=== PATIENT | female | born 1945 | race Caucasian/White ===

== ENCOUNTER 2019-04-21 13:24 | Outpatient (CLI) | payer OTHER, SELFPAY ==
--- NOTE | ~2019-04-21 | CT_ITS ---
EXAMINATION: CT abdomen pelvis wo con EXAM DATE: 04/21/2019 14:01 INDICATION: Bilateral flank pain. Possible anterior abdominal pain. TECHNIQUE: Spiral CT of the abdomen and pelvis was performed without contrast. Axial, coronal and sag ittal images were reviewed. The dose-length product (DLP) for this examination was 538.96 mGy-cm. T he exposure was tailored according to patient size (auto mA exposure control), and iterative reconstr uction (ASIR) was used as additional dose reduction technique. Comparison is made to prior examinatio n from 03/17/2019. FINDINGS: Right calyceal stone measuring 1.1 cm. No hydronephrosis. The uterus is retroverted and mo rphologically normal. The bladder is unremarkable. Left liver lobe lateral segment cyst measuring 5.7 cm. There is probable splenosis. Adrenal glands, pancreas are unremarkable. Gallbladder is unrem arkable. No biliary obstruction. There is no retroperitoneal or pelvic lymphadenopathy. There is moderate scattered arteriosclerotic disease. The appendix is normal. The stomach and small bowel are unremarkable. There is moderate to large am ount of stool within the transverse colon which is tortuous and low lying. No free intraperitoneal gas. The heart is normal in size. There are no pericardial or pleural effusions. There are bibasi lar linear opacities, subsegmental atelectasis. There are multiple thoracolumbar compression fractures. Bones are osteopenic. More specifically, ther e is moderate to severe anterior wedging of the T10 vertebral body, mild at T11, mild to moderate at T12, L1 and L2. Mild to moderate central compression of L3 and moderate to severe central compression of L4. The T11 fracture is new compared to last month CT. Also one or more could potentially involve the posterior aspect of the vertebral body, but there is no retropulsion. There are old left rib fra ctures posteriorly. No evidence of sacral insufficiency fracture. There are no osteoblastic or osteol ytic lesions identified. IMPRESSION: 1. Moderate to large amount of transverse colonic stool. 2. Right nephrolithiasis. 3. Splenosis. Other chronic findings. 4. Interval development of subacute T11 compression fracture. Multiple other thoracolumbar compressi on fractures unchanged.. Reviewed, dictated and finalized at location A. E THINNER IMPRESSION: 1. Moderate to large amount of transverse colonic stool. 2. Right nephrolithiasis. 3. Splenosis. Other chronic findings. 4. Interval development of subacute T11 compression fracture. Multiple other t horacolumbar compression fractures unchanged..
== END 2019-04-21 13:25 | disposition home or self-care (01) ==
LOC: ANHIMG 13:30
PROVIDERS: PCP Family Medicine; Visit Provider Nurse Practitioner
DX: R10.9 Unspecified abdominal pain (principal); N20.0 Calculus of kidney
CPT/HCPCS: 74176

== ENCOUNTER 2019-04-21 15:02 | Emergency (ER) | payer OTHER, SELFPAY ==
[2019-04-21 15:11] VITALS: BP 179/111; PULSE 81; RESP 18; TEMP 36.8; O2SAT 100
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
[2019-04-21 15:43] LABS: Basophils Percent Auto 0.4 % (0.2-1.2); Eosinophils Absolute Auto 0.3 K/mm3 (0-0.3); Eosinophils Percent Auto 2.6 % (0-4.4); Hematocrit 45.5 % (37.0-47.0); Hemoglobin 14.9 g/dL (12.0-15.0); Immature Granulocyte Absolute 0.04 K/mm3 (0.00-0.031); Immature Granulocyte Percent A 0.4 % (0-0.5); Lymphocytes Absolute Auto 2.89 K/mm3 (0.9-3.2); Mean Corpuscular HGB Conc 32.7 g/dl (32-36); Mean Corpuscular Hemoglobin 30.5 pg (26-34); Mean Corpuscular Volume 93.2 fl (80-100); Mean Platelet Volume 12.1 fl (7.4-10.4); Monocytes Absolute Auto 1.1 K/mm3 (0.1-0.6); Monocytes Percent Auto 10.4 % (2.6-8.5); Neutrophils Absolute Auto 6.4 K/mm3 (1.3-6.7); Neutrophils Percent Auto 59.2 % (45.5-73.1); Platelet Count Result 234 k/mm3 (150-375); Red Blood Count 4.88 M/mm3 (4.2-5.4); Red Cell Distribution Width 12.7 % (11.5-14.5); White Blood Count 10.7 K/mm3 (4.5-10.0)
[2019-04-21] MEDS: DIAZEPAM 5 MG TABLET (15:44)
[2019-04-21] MEDS: MORPHINE SULFATE 4 MG/ML INJ (15:45)
[2019-04-21] MEDS: SODIUM CHLORIDE 0.9% IV 1,000 ML 999 ML IV CONT (15:46)
[2019-04-21 15:54] LABS: Alanine Aminotransferase 14 U/L (4-35); Albumin Level 5.1 g/dL (3.5-5.1); Alkaline Phosphatase 102 U/L (38-126); Aspartate Amino Transferase 22 U/L (14-36); Bilirubin,Total 0.8 mg/dL (0.2-1.3); Blood Urea Nitrogen 14 mg/dL (7-17); Calcium 10.5 mg/dL (8.4-10.2); Carbon Dioxide 23 mmol/L (22-30); Chloride 103 mmol/L (98-107); Estimated CRCL calculation 65 ml/min; Estimated Glomerular Filt Rate > 60; Glucose 120 mg/dL (65-105); Lipase 76 U/L (23-300); Potassium 4.2 mmol/L (3.4-5.0); Sodium 142 mmol/L (137-145)
[2019-04-21 16:28] VITALS: BP 174/109; PULSE 76; RESP 18; O2SAT 97
[2019-04-21 17:06] LABS: Add Urine Microscopic? YES; Appearance Urine Clear (Clear); Bacteria Urine Trace /hpf; Bilirubin Urine Negative (Negative); Blood Urine 2+ (Negative); Color Urine Yellow (Yellow); Glucose Urine UA Negative (Negative); Ketones Urine Trace mg/dL (Negative); Leukocyte Esterase Ur 3+ LEU/UL (Negative); Mucus Urine Heavy /lpf; Nitrate Urine Negative (Negative); Protein Urine Negative (Negative); Specific Grav Ur 1.019 (1.001-1.035); Squamous Epithelial Cell Urine Few /hpf (Few); WBC Urine 51-75 /hpf
[2019-04-21 17:31] VITALS: BP 163/94; PULSE 73; RESP 13; O2SAT 97
--- NOTE | 2019-04-26 09:04 | PC.NURSE ---
LATE ENTRY This note is being entered to document information to the patient's record. The following information was omitted on 04/21/2019, by Jazzy Gooden RN. 1,000 MLS NS infused at stop time of 1618 w/ 0 volume left.
== END 2019-04-21 17:49 | disposition home or self-care (01) ==
PROVIDERS: Emergency Provider Emergency Medicine; PCP Family Medicine
DX: N39.0 Urinary tract infection, site not specified (principal); S22.080A Wedge compression fracture of T11-T12 vertebra, initial encounter for closed fracture; M19.90 Unspecified osteoarthritis, unspecified site; I10 Essential (primary) hypertension; K73.2 Chronic active hepatitis, not elsewhere classified; E78.2 Mixed hyperlipidemia; Z86.73 Personal history of transient ischemic attack (TIA), and cerebral infarction without residual deficits; Z87.442 Personal history of urinary calculi; M51.35 Other intervertebral disc degeneration, thoracolumbar region; X58.XXXA Exposure to other specified factors, initial encounter
CPT/HCPCS: 36415; 80053; 81001; 83690; 85025; 87086; 96361; 96374; 99284; A9270; J2270; J7030

== ENCOUNTER 2019-04-29 23:22 | Emergency (ER) | payer OTHER, SELFPAY ==
--- NOTE | ~2019-04-29 | CT_ITS ---
EXAMINATION: CT abdomen pelvis wo con DATE: 04/30/2019 00:12 INDICATION: Right flank pain. Nausea and vomiting. TECHNIQUE: Computed tomography (CT) of the abdomen and pelvis was performed without intravenous contr ast. Automated exposure control and iterative reconstruction technique were employed. The dose-length product was 479.57 mGy-cm. COMPARISON: CT abdomen and pelvis 04/21/2019, 03/17/19 FINDINGS: The visualized portions of the lung bases demonstrate mild atelectasis. No pleural effusion . The heart size is normal. There are changes of aortic valve replacement. No pericardial effusion. T here is a 5.5 cm cyst in the liver. The gallbladder is normal. There are surgical clips and splenosis in left upper quadrant. The pancreas, adrenal glands, and left kidney are normal. There is a [address] one in right kidney. There are no dilated loops of bowel. The appendix is normal. There are no pathol ogically enlarged lymph nodes. There is no free intraperitoneal fluid. There is lumbar levoscoliosis and severe spondylosis. There is a subacute burst fracture of L1 with 2/5 loss of height and retropul margarette of bone 2 mm into central spinal canal. There is a subacute burst fracture of T11 with 1/5 loss of height. There are chronic fractures of T9, T10, T12, L2, L3, L4, and L5 vertebral bodies. IMPRESSION: 1. 9 mm nonobstructing right kidney stone. Reviewed, dictated and finalized at location A. LAYER SUPERVISOR
[2019-04-29 23:25] VITALS: BP 168/96; PULSE 66; RESP 22; TEMP 36.6; O2SAT 97
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
[2019-04-30 00:02] LABS: Add Urine Microscopic? NO; Appearance Urine Clear (Clear); Bilirubin Urine Negative (Negative); Blood Urine Negative (Negative); Color Urine Straw (Yellow); Glucose Urine UA Negative (Negative); Ketones Urine Negative (Negative); Leukocyte Esterase Ur Negative LEU/UL (Negative); Nitrate Urine Negative (Negative); Protein Urine Negative (Negative); Specific Grav Ur 1.011 (1.001-1.035); Urobilinogen Urine Negative mg/dL (<2.0)
[2019-04-30] MEDS: KETOROLAC 30 MG/ML VIAL (*BKC) IV PUSH (00:10)
[2019-04-30 01:20] LABS: Alanine Aminotransferase 11 U/L (4-35); Albumin Level 3.9 g/dL (3.5-5.1); Alkaline Phosphatase 104 U/L (38-126); Aspartate Amino Transferase 20 U/L (14-36); Bilirubin,Total 0.4 mg/dL (0.2-1.3); Blood Urea Nitrogen 13 mg/dL (7-17); Calcium 9.6 mg/dL (8.4-10.2); Carbon Dioxide 20 mmol/L (22-30); Chloride 104 mmol/L (98-107); Estimated CRCL calculation 78 ml/min; Estimated Glomerular Filt Rate > 60; Glucose 106 mg/dL (65-105); Potassium 3.6 mmol/L (3.4-5.0); Sodium 140 mmol/L (137-145)
[2019-04-30 01:22] LABS: Basophils Absolute Auto 0.1 K/mm3 (0.0-0.1); Basophils Percent Auto 0.6 % (0.2-1.2); Eosinophils Absolute Auto 0.4 K/mm3 (0-0.3); Eosinophils Percent Auto 3.3 % (0-4.4); Hematocrit 41.4 % (37.0-47.0); Hemoglobin 13.4 g/dL (12.0-15.0); Immature Granulocyte Absolute 0.07 K/mm3 (0.00-0.031); Immature Granulocyte Percent A 0.6 % (0-0.5); Lymphocytes Absolute Auto 2.59 K/mm3 (0.9-3.2); Lymphocytes Percent Auto 23.9 % (18.3-44.2); Mean Corpuscular HGB Conc 32.4 g/dl (32-36); Mean Corpuscular Hemoglobin 30.5 pg (26-34); Mean Corpuscular Volume 94.1 fl (80-100); Mean Platelet Volume 11.8 fl (7.4-10.4); Monocytes Percent Auto 9.5 % (2.6-8.5); Neutrophils Absolute Auto 6.7 K/mm3 (1.3-6.7); Neutrophils Percent Auto 62.1 % (45.5-73.1); Platelet Count Result 228 k/mm3 (150-375); Red Cell Distribution Width 12.7 % (11.5-14.5); White Blood Count 10.8 K/mm3 (4.5-10.0)
[2019-04-30 01:30] VITALS: BP 144/86; PULSE 62; RESP 19; O2SAT 94
== END 2019-04-30 02:00 | disposition home or self-care (01) ==
PROVIDERS: Emergency Provider Emergency Medicine; PCP Family Medicine
DX: M48.54XG Collapsed vertebra, not elsewhere classified, thoracic region, subsequent encounter for fracture with delayed healing (principal); M48.56XG Collapsed vertebra, not elsewhere classified, lumbar region, subsequent encounter for fracture with delayed healing; S32.011A Stable burst fracture of first lumbar vertebra, initial encounter for closed fracture; M85.88 Other specified disorders of bone density and structure, other site; N20.0 Calculus of kidney; M19.90 Unspecified osteoarthritis, unspecified site; I10 Essential (primary) hypertension; E78.2 Mixed hyperlipidemia; Z86.73 Personal history of transient ischemic attack (TIA), and cerebral infarction without residual deficits; G57.01 Lesion of sciatic nerve, right lower limb; Z79.82 Long term (current) use of aspirin; Z90.81 Acquired absence of spleen; Z95.2 Presence of prosthetic heart valve; I25.10 Atherosclerotic heart disease of native coronary artery without angina pectoris; Z95.1 Presence of aortocoronary bypass graft; X58.XXXA Exposure to other specified factors, initial encounter
CPT/HCPCS: 36415; 74176; 80053; 81003; 85025; 96365; 96375; 99284; J0131; J1885

== ENCOUNTER → 2019-09-14 11:11 | Outpatient (CLI) | payer OTHER, SELFPAY ==
--- NOTE | ~2019-09-14 | DEXA_ITS ---
Bone Density Report Name: Naomi Askew Age: 74 Sex: Female Ethnicity: White Date of : 1945 Indication: postmenopausal; screening for osteoporosis; height loss; prior fracture; Referring Provider: Luba Pena Study: Bone densitometry was performed. Exam Date: September 14, 2019 Accession number: [id number] Bone Density: Region BMD T-score Z-score Classification AP Spine (L1-L4) 1.088 0.4 2.6 Normal Femoral Neck (Left) 0.581 -2.4 -0.5 Osteopenia Total Hip (Left) 0.785 -1.3 0.4 Osteopenia Femoral Neck (Right) 0.543 -2.8 -0.8 Osteoporosis Total Hip (Right) 0.743 -1.6 0.0 Osteopenia Total Hip Mean 0.764 -1.5 0.2 Osteopenia World Health Organization criteria for BMD impression classify patients as: Normal (T-score at or above -1.0), Osteopenia (T-score between -1.0 and -2.5), or Osteoporosis (T-score at or below -2.5). 10-year Fracture Risk: FRAX not reported because: Some T-score for Spine Total or Hip Total or Femoral Neck at or below -2.5 Prior hip or vertebral fracture Clinical Information Provided by Patient: Have had a previous hip or vertebral fracture Has had a low trauma fracture Has used the following medications: Vitamin D Patient maximum height was 69 Menopause Age: 52 No regular weight bearing exercise Onset of menses at age 18 Number of children 2 Impression: The patient has established osteoporosis, based on the Right Femoral Neck T-score and the existence of a prior fracture. The patient has risk factors, including: previous fracture. Discussion: HIGH RISK OF FRACTURE. BONE DENSITY IS UNDESIRABLY LOW AT ONE OR MORE SKELETAL SITES, CONSISTENT WITH POSTMENOPAUSAL OSTEOPOROSIS. This patient's lowest T-score, in a patient who has previously fractured, meets the World Health Organization's (WHO) criteria for severe osteoporosis. In untreated patients, the risk of osteoporotic fracture increases approximately two-fold for each 1.0 SD decrease in T-score. Low bone density is not the only risk factor for fracture; also consider factors such as patient's age, frailty or poor health, risk of falling, risk of injury, previous osteoporotic fracture, family history of osteoporosis, cigarette smoking, low body weight, etc. Not everyone with low bone mineral density has osteoporosis; osteomalacia and other metabolic bone disorders should also be considered. Patients who have osteoporosis should be evaluated for specific diseases and conditions (secondary causes) that may cause or contribute to bone loss. The [place] Association [employer] Clinical Endocrinologists (AACE) and National Osteoporosis Foundation (NOF) recommend pharmacologic intervention for all postmenopausal women with a previous hip or vertebral fracture and a T-score in this range. The patient should follow a healthful lifestyle (good nutrition
== END ==
PROVIDERS: PCP Family Medicine; Visit Provider Nurse Practitioner
DX: Z78.0 Asymptomatic menopausal state (principal); M85.89 Other specified disorders of bone density and structure, multiple sites; M81.0 Age-related osteoporosis without current pathological fracture
CPT/HCPCS: 77080

== ENCOUNTER 2019-10-04 08:36 | Outpatient (CLI) | payer OTHER, SELFPAY ==
--- NOTE | ~2019-10-04 | CT_ITS ---
EXAMINATION: CT chest w con EXAM DATE: 10/04/2019 09:33 INDICATION: Status post aortic valve replacement, ascending aortic aneurysm follow-up. TECHNIQUE: Spiral CT of the chest following intravenous injection of 75 mL Omnipaque 350. Axial, cor onal and sagittal images were reviewed. Coronal maximum intensity pixel images of chest reviewed. T marichuy dose-length product (DLP) for this examination was 123.48 mGy-cm. The exposure was tailored accor ding to patient size (auto mA exposure control), and iterative reconstruction (ASIR) was used as audie tional dose reduction technique. Comparison is made to prior examination from 10/02/2018. FINDINGS: Patient has had aortic valve replacement, ascending aortic aneurysm repair. No thoracic ao rtic dissection. There is mild to moderate scattered aortic arteriosclerotic disease. Sternotomy wire s. There is noncalcified left lower lobe granuloma measuring 5 mm, unchanged. There is mild emphysema . There are no pleural or pericardial effusions. Tracheobronchial tree is patent. There is no med iastinal, hilar or axillary lymphadenopathy. There is no pneumothorax. Heart normal in size. Th ere is mild coronary arterial calcification, arterial sclerosis. There is left liver lobe cyst measu ring 5.7 cm. Previously seen T12 and L1 compression fractures have been treated with vertebroplasty. There is persistent moderate compression fracture at T10. Interval development of mild compression f racture inferior endplate of T8. IMPRESSION: 1. Stable aortic valve replacement, aneurysm repair. 2. Thoracolumbar compression fractures. 3. Mild emphysema. Reviewed, dictated and finalized at location A.
[2019-10-04 09:22] LABS: Estimated Glomerular Filt Rate > 60
== END 2019-10-04 08:37 | disposition home or self-care (01) ==
PROVIDERS: PCP Family Medicine; Referring Provider Internal Medicine Cardiovascular Disease; Visit Provider Thoracic Surgery (Cardiothoracic Vascular Surgery)
DX: I71.00 Dissection of unspecified site of aorta (principal); J43.9 Emphysema, unspecified; Z95.2 Presence of prosthetic heart valve
CPT/HCPCS: 36415; 71260; Q9967

== ENCOUNTER 2020-11-03 10:26 | Outpatient (CLI) | payer OTHER, SELFPAY ==
--- NOTE | ~2020-11-03 | XR_ITS ---
XR abdomen/kub 1V 11/03/2020 10:56 Indication: Renal stone Procedure: KUB Comparison: No prior studies for comparison. Findings: Bowel gas pattern is nonobstructive. Moderate colonic fecal loading. There is probable righ t renal stone which is partially obscured by bowel content. There are pelvic phleboliths. There is ad vanced lumbar spondylosis. There are vertebroplasty changes at T12 and L1. Impression: 1: Probable right nephrolithiasis. Reviewed, dictated and finalized at location A. Impression: 1: Probable right nephrolithiasis.
== END 2020-11-03 10:27 | disposition home or self-care (01) ==
LOC: ANHIMG 10:30
PROVIDERS: PCP Family Medicine; Visit Provider Nurse Practitioner Adult Health
DX: N20.0 Calculus of kidney (principal)
CPT/HCPCS: 74018

== ENCOUNTER 2020-11-07 11:26 | Outpatient (CLI) | payer OTHER, SELFPAY ==
--- NOTE | 2020-11-07 11:30 | ECG_ITS ---
Measurements Intervals [place] Rate: 60 P: 15 LA: 190 QRS: -14 QRSD: 86 T: 44 QT: 408 QTc: 411 Interpretive Statements SINUS RHYTHM WITH MARKED SINUS ARRHYTHMIA POSSIBLE LEFT ATRIAL ENLARGEMENT INFERIOR INFARCT, AGE INDETERMINATE BASELINE ARTIFACT- I, II, III, AVL, V4 ABNORMAL ECG Electronically Signed On 11-07-2020 11:53:59 CDT by Aleksandr Cho D.O.
[2020-11-07 12:14] LABS: Partial Thromboplastin Time 27.5 SECONDS (22.3-36.8); Prothrombin Time 12.7 Seconds (11.1-14.7)
== END 2020-11-07 11:27 | disposition home or self-care (01) ==
PROVIDERS: PCP Family Medicine; Visit Provider Urology
DX: Z01.818 Encounter for other preprocedural examination (principal); N20.0 Calculus of kidney; I10 Essential (primary) hypertension; R94.31 Abnormal electrocardiogram [ECG] [EKG]
CPT/HCPCS: 36415; 85610; 85730; 87086; 87088; 93005

== ENCOUNTER 2020-11-10 02:00 | Day surgery (SDC) | payer OTHER, SELFPAY ==
[2020-11-06 12:39] VITALS: BMI 23.0
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
[2020-11-10] VITALS (9 sets, daily range): BP systolic 121–179; BP diastolic 66–92; PULSE 53–77; RESP 15–20; TEMP 36–36.3; O2SAT 95–100
--- NOTE | ~2020-11-10 | XR_ITS ---
EXAMINATION: XR abdomen/kub 1V EXAM DATE: 11/10/2020 07:42 INDICATION: Right-sided kidney stone, pre lithotripsy. TECHNIQUE: Frontal projection of the upper abdomen, frontal projection lower abdomen/pelvis for inter pretation. Comparison is made to prior examination from 11/03/20. FINDINGS: There is 1 cm calcific density rejecting over right kidney, likely the stone identified on CT. Renal contour is obscured by bowel gas. Nonobstructive bowel gas pattern. Aortic valve replaceme nt, sternotomy wires, vertebroplasty at T12 and L1, lumbar spondylosis. IMPRESSION: 1. Large right nephrolithiasis. Reviewed, dictated and finalized at location A.
--- NOTE | 2020-11-10 06:32 | WPDHPUPDATE1 ---
History and Physical Update Update Date/Time: 11/10/20 06:32 History and Physical has been reviewed, including an updated exam of the patient. There are NO changes in the patient's condition. Risks, benefits, and alternatives have been discussed and questions answered. Patient agrees to proceed with procedure.
[2020-11-10] MEDS: LACTATED RINGERS 1,000 ML 30 ML IV CONT (08:30)
[2020-11-10] MEDS: ceFAZolin 2 GM/D5W 50 ML 2 GM/50 ML BAG IVPB (09:19)
--- NOTE | 2020-11-10 09:44 | W.PM.PROC2 ---
Procedure Note - Detailed Date of Procedure 11/10/20 Pre-op Diagnosis Right kidney stone Post-op Diagnosis same Procedure Performed Right ESWL Surgeon Chavez Shields MD Anesthesia general Description of Procedure The patient was brought to the operative suite where she was placed in the supine position on the Dornier lithotripsy table. The focal point of the lithotripter was placed at an 11mm right renal calculus. A total of 2500 shocks were delivered at a power setting of 4. There appeared to be good fragmentation of the stone. The patient tolerated the procedure well and was taken to the recovery room in good condition. Estimated Blood Loss 0 Drains No Packing No Pathology none sent Complications No immediate complications Condition stable Disposition PACU
--- NOTE | 2020-11-10 10:42 | SUR.PHASEI ---
Simple mask removed at 1041.
--- NOTE | 2020-11-10 12:03 | SUR.PHASEII ---
1145 PT MEETS ANESTHESIA DISCHARGE CRITERIA. PT DRESSED. WAITING ON RIDE HOME.
== END 2020-11-10 12:04 | disposition home or self-care (01) ==
PROVIDERS: PCP Family Medicine; Visit Provider Urology
PROC: (CPT 50590; principal; 2020-11-10 09:30)
DX: N20.0 Calculus of kidney (principal); M19.90 Unspecified osteoarthritis, unspecified site; I10 Essential (primary) hypertension; E78.2 Mixed hyperlipidemia; Z86.73 Personal history of transient ischemic attack (TIA), and cerebral infarction without residual deficits; F32.9 Major depressive disorder, single episode, unspecified; Z79.82 Long term (current) use of aspirin
CPT/HCPCS: 50590; 36415; 74018; 85610; 85730; 87086; 87088; 93005; J0690; J1100; J2405; J2704; J7120

== ENCOUNTER 2020-11-24 13:59 | Outpatient (CLI) | payer OTHER, SELFPAY ==
--- NOTE | ~2020-11-24 | XR_ITS ---
EXAMINATION: XR abdomen/kub 1V INDICATION: Right-sided kidney stone TECHNIQUE: Supine views of the abdomen were obtained on 2 radiographs. COMPARISON: 11/10/2020 FINDINGS: Bowel contents project over the kidneys limiting sensitivity for renal stones. The previous ly described stone in the right kidney is not definitely identified, consistent with interval therapy . No definite stones or stone fragments are identified along the expected course of the right ureter. There are phleboliths described moderate stool vertebroplasty change is noted at T12 and L1. IMPRESSION: 1. No definite urolithiasis identified. Reviewed, dictated and finalized at location B.
== END 2020-11-24 14:00 | disposition home or self-care (01) ==
LOC: ANHIMG 14:01
PROVIDERS: PCP Family Medicine; Visit Provider Urology
DX: N20.0 Calculus of kidney (principal)
CPT/HCPCS: 74018

== ENCOUNTER 2020-12-15 03:39 | Emergency (ER) | payer OTHER, SELFPAY ==
--- NOTE | ~2020-12-15 | CT_ITS ---
EXAMINATION: CT abdomen pelvis wo con EXAM DATE: 12/15/2020 05:01 INDICATION: R flank pain eval for stone TECHNIQUE: Spiral CT of the abdomen and pelvis was performed without contrast. Axial, coronal and sag ittal images were reviewed. The dose-length product (DLP) for this examination was 167.89 mGy-cm. T he exposure was tailored according to patient size (auto mA exposure control), and iterative reconstr uction (ASIR) was used as additional dose reduction technique. Comparison is made to prior examinatio n from 04/30/2019. FINDINGS: There are several stones in the distal aspect of the right ureter, 1 cm from the ureteroves icular junction. This line of stones measures 1.7 cm in length, difficult to determine exactly how la rge any given stone is. There is moderate right-sided obstructive nephropathy. Additional stone in th e inferior calyx of this kidney measuring 1 cm. No left nephrolithiasis. Small umbilical fat-containing hernia. The uterus is unremarkable. The bl adder is unremarkable. There is left liver lobe cyst measuring 5.7 cm. Liver, pancreas and adrenal g lands are unremarkable. Patient may have had splenectomy and subsequent development of splenosis. Ga llbladder is unremarkable. No biliary obstruction. There is no retroperitoneal or pelvic lymphadeno nikki. There is moderate scattered arteriosclerotic disease. The appendix is normal. The stomach and small bowel are unremarkable. There is expected amount of c olonic stool. No free intraperitoneal gas. Cardiomegaly. Aortic valve replacement. Sternotomy wir es. There are bibasilar linear opacities, subsegmental atelectasis. Chronic appearing thoracolumbar compression and burst fractures including T12 and L1 methylmethacrylate injection. These appear unch anged. IMPRESSION: 1. Line of stones in the distal aspect of the right ureter. Moderate obstructive nephropathy. Urolog ist would appreciate baseline KUB. 2. Right nephrolithiasis. 3. Chronic findings. Reviewed, dictated and finalized at location A. IMPRESSION: 1. Line of stones in the distal aspect of the right ureter. Moderate obstructi ve nephropathy. Urologist would appreciate baseline KUB. 2. Right nephrolithiasis. 3. Chronic findings.
[2020-12-15 03:40] VITALS: BP 159/99; PULSE 60; RESP 21; TEMP 36.5; O2SAT 95
[2020-12-15] MEDS: MORPHINE SULFATE (*CRX) 4 MG/ML INJ IV PUSH ×2 (04:04→05:21)
[2020-12-15] MEDS: ONDANSETRON INJ 4 MG/2 ML VIAL IV PUSH (04:04)
[2020-12-15] MEDS: SODIUM CHLORIDE 0.9% IV 1,000 ML 999 ML (04:05)
[2020-12-15 04:08] LABS: Basophils Absolute Auto 0.1 K/mm3 (0.0-0.1); Basophils Percent Auto 0.4 % (0.2-1.2); Eosinophils Absolute Auto 0.1 K/mm3 (0-0.3); Eosinophils Percent Auto 0.8 % (0-4.4); Hematocrit 40.2 % (37.0-47.0); Hemoglobin 13.3 g/dL (12.0-15.0); Immature Granulocyte Absolute 0.03 K/mm3 (0.00-0.031); Immature Granulocyte Percent A 0.3 % (0-0.5); Lymphocytes Percent Auto 18.6 % (18.3-44.2); Mean Corpuscular HGB Conc 33.1 g/dl (32-36); Mean Corpuscular Volume 96.9 fl (80-100); Mean Platelet Volume 11.9 fl (7.4-10.4); Monocytes Absolute Auto 0.9 K/mm3 (0.1-0.6); Monocytes Percent Auto 8.1 % (2.6-8.5); Neutrophils Absolute Auto 8.1 K/mm3 (1.3-6.7); Neutrophils Percent Auto 71.8 % (45.5-73.1); Platelet Count Result 195 k/mm3 (150-375); Red Blood Count 4.15 M/mm3 (4.2-5.4); White Blood Count 11.3 K/mm3 (4.5-10.0)
[2020-12-15 04:10] LABS: Alanine Aminotransferase 13 U/L (4-35); Albumin Level 4.9 g/dL (3.5-5.1); Alkaline Phosphatase 75 U/L (38-126); Anion Gap 11 mmol/L (8-16); Aspartate Amino Transferase 23 U/L (14-36); Bilirubin,Total 0.5 mg/dL (0.2-1.3); Blood Urea Nitrogen 18 mg/dL (7-17); Calcium 9.5 mg/dL (8.4-10.2); Carbon Dioxide 23 mmol/L (22-30); Chloride 108 mmol/L (98-107); Estimated CRCL calculation 51 ml/min; Estimated Glomerular Filt Rate > 60; Glucose 145 mg/dL (65-110); Lipase 35 U/L (23-300); Potassium 3.8 mmol/L (3.4-5.0); Sodium 142 mmol/L (137-145)
[2020-12-15 04:26] LABS: Add Urine Microscopic? YES; Appearance Urine Cloudy (Clear); Bilirubin Urine Negative (Negative); Blood Urine 3+ (Negative); Color Urine Colorless (Yellow); Glucose Urine UA Negative (Negative); Ketones Urine Negative (Negative); Leukocyte Esterase Ur Negative LEU/UL (Negative); Nitrate Urine Negative (Negative); Protein Urine 1+ mg/dL (Negative); RBC Urine >75 /hpf (0-2); Specific Grav Ur 1.016 (1.001-1.035); Urobilinogen Urine Negative mg/dL (<2.0)
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
[2020-12-15 05:22] VITALS: BP 161/88; PULSE 58; RESP 15; O2SAT 94
[2020-12-15 06:45] VITALS: BP 156/82; PULSE 57; RESP 17; O2SAT 95
== END 2020-12-15 07:12 | disposition home or self-care (01) ==
PROVIDERS: Emergency Provider Emergency Medicine; PCP Family Medicine
DX: N13.8 Other obstructive and reflux uropathy (principal); N20.2 Calculus of kidney with calculus of ureter; I10 Essential (primary) hypertension; Z86.73 Personal history of transient ischemic attack (TIA), and cerebral infarction without residual deficits; M19.90 Unspecified osteoarthritis, unspecified site; E78.2 Mixed hyperlipidemia; Z87.442 Personal history of urinary calculi; Z86.19 Personal history of other infectious and parasitic diseases; Z90.81 Acquired absence of spleen; Z95.2 Presence of prosthetic heart valve; R31.9 Hematuria, unspecified
CPT/HCPCS: 36415; 74176; 80053; 81001; 83690; 85025; 87086; 96361; 96374; 96375; 96376; 99284; J2270; J2405; J7030

== ENCOUNTER 2021-06-01 13:34 | Outpatient (CLI) | payer MEDICARE, SELFPAY ==
--- NOTE | ~2021-06-01 | XR_ITS ---
XR abdomen/kub 1V 06/01/2021 13:56 INDICATION: Renal stones TECHNIQUE: KUB COMPARISON: Comparison to multiple prior studies sequentially, with oldest reviewed study dated 11/03. FINDINGS: Bowel gas pattern is normal. There is no evidence of free air, mass, organomegaly, ascites or obstruction. Large amount of retained fecal material in the colon. Bowel content obscures the kid neys. No abnormal calculi are seen. The bones appear intact. There are compression fractures at T12 and L1 with vertebroplasty changes. There is advanced lumbar spondylosis with levoscoliosis. IMPRESSION: 1: No acute abdominal abnormality identified. Reviewed, dictated and finalized at location B.
== END 2021-06-01 13:35 | disposition home or self-care (01) ==
PROVIDERS: PCP Family Medicine; Visit Provider Urology
DX: N20.0 Calculus of kidney (principal)
CPT/HCPCS: 74018

== ENCOUNTER 2022-09-26 13:36 | Emergency (ER) | payer MEDICARE, SELFPAY ==
--- NOTE | ~2022-09-26 | XR_ITS ---
EXAMINATION: XR wrist RT min 3V DATE: 09/26/2022 14:04 INDICATION: Right wrist pain. TECHNIQUE: 4 views of right wrist were obtained. COMPARISON: Right wrist radiographs 08/11/2014 FINDINGS: Bone alignment is normal. No fracture. There is mild osteoarthritis of distal radioulnar yaa int and severe osteoarthritis of first carpometacarpal joint. There are dystrophic calcifications in the wrist. There are loose bodies in the wrist. IMPRESSION: 1. Polyarticular osteoarthritis. Reviewed, dictated and finalized at location E.
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
[2022-09-26 13:46] VITALS: BP 124/83; PULSE 107; RESP 16; TEMP 36.8; O2SAT 97
[2022-09-26 13:50] VITALS: BP 124/83; PULSE 107; RESP 16; TEMP 36.8; O2SAT 97
== END 2022-09-26 14:40 | disposition home or self-care (01) ==
PROVIDERS: Emergency Provider Nurse Practitioner Family; PCP Family Medicine
DX: M19.031 Primary osteoarthritis, right wrist (principal); I10 Essential (primary) hypertension; E78.2 Mixed hyperlipidemia; Z86.73 Personal history of transient ischemic attack (TIA), and cerebral infarction without residual deficits; Z86.61 Personal history of infections of the central nervous system; Z95.2 Presence of prosthetic heart valve
CPT/HCPCS: 73110; 99213; G0463

== ENCOUNTER 2022-10-02 11:56 | Outpatient (CLI) | payer MEDICARE, SELFPAY ==
[2022-10-02 14:46] LABS: Basophils Absolute Auto 0.1 K/mm3 (0.0-0.1); Basophils Percent Auto 0.8 % (0.2-1.2); Eosinophils Absolute Auto 0.2 K/mm3 (0-0.3); Eosinophils Percent Auto 2.5 % (0-4.4); Hematocrit 42.8 % (37.0-47.0); Hemoglobin 13.6 g/dL (12.0-15.0); Immature Granulocyte Absolute 0.03 K/mm3 (0.00-0.031); Immature Granulocyte Percent A 0.4 % (0-0.5); Lymphocytes Percent Auto 32.9 % (18.3-44.2); Mean Corpuscular HGB Conc 31.8 g/dl (32-36); Mean Corpuscular Hemoglobin 31.7 pg (26-34); Mean Corpuscular Volume 99.8 fl (80-100); Mean Platelet Volume 12.5 fl (7.4-10.4); Monocytes Absolute Auto 0.9 K/mm3 (0.1-0.6); Monocytes Percent Auto 11.2 % (2.6-8.5); Neutrophils Percent Auto 52.2 % (45.5-73.1); Platelet Count Result 228 k/mm3 (150-375); Red Blood Count 4.29 M/mm3 (4.2-5.4); Red Cell Distribution Width 13.4 % (11.5-14.5); White Blood Count 7.6 K/mm3 (4.5-10.0)
[2022-10-02 16:51] LABS: Alanine Aminotransferase 15 U/L (6-35); Albumin Level 4.3 g/dL (3.5-5.1); Alkaline Phosphatase 61 U/L (38-126); Anion Gap 5 mmol/L (8-16); Aspartate Amino Transferase 46 U/L (14-36); Bilirubin,Total 0.7 mg/dL (0.2-1.3); Blood Urea Nitrogen 16 mg/dL (7-17); Calcium 9.2 mg/dL (8.4-10.2); Carbon Dioxide 30 mmol/L (22-30); Chloride 107 mmol/L (98-107); Cholesterol 158 mg/dL (0-200); Estimated Glomerular Filt Rate > 60; Glucose 97 mg/dL (65-110); HDL Direct 52 mg/dL; Potassium 3.9 mmol/L (3.4-5.0); Sodium 142 mmol/L (137-145); Triglycerides 81 mg/dL (<150); Uric Acid 3.4 mg/dL (2.5-7.5)
[2022-10-02 17:02] LABS: LDL Cholesterol Direct 78 mg/dL
== END 2022-10-02 11:57 | disposition home or self-care (01) ==
LOC: ANHGOSHLAB 11:57
PROVIDERS: PCP Family Medicine; Visit Provider Nurse Practitioner Family
DX: M25.531 Pain in right wrist (principal); E78.2 Mixed hyperlipidemia; I10 Essential (primary) hypertension
CPT/HCPCS: 36415; 80053; 80061; 84550; 85025

== ENCOUNTER 2023-01-28 11:09 | Outpatient (CLI) | payer MEDICARE, SELFPAY ==
--- NOTE | ~2023-01-28 | XR_ITS ---
Thoracic spine: Clinical Indication: Compression fracture AP and lateral views were performed. There are compression fracture deformities with vertebroplasty cement at T12 and L1. There are additi onal compression fractures at T8, T9, T10, and T11. The T9 and T10 compression fractures are moderate to severe. There is associated relative kyphosis. There is mild intervertebral disc degenerative danisha nge in the mid to lower thoracic spine. The intervertebral disc spaces appear normal. Paravertebral s oft tissues appear normal. Impression: Compression fractures of T8, T9, T10, and T11, as detailed above. Prior vertebroplasty at T12 and L1. Reviewed, dictated and finalized at location M. MAKER Impression: Compression fractures of T8, T9, T10, and T11, as detailed above. Prior vertebroplasty at T12 and L1.
--- NOTE | ~2023-01-28 | XR_ITS ---
Lumbosacral Spine: AP, oblique, and lateral views Clinical History: Pain Findings: The normal lordotic curve is maintained. There is prior vertebroplasty at T12 and L1. There are mild to moderate compression fracture deformities of the supracondylar regions of L2 and L4. The re is moderate facet arthropathy at L4-S1. There is mild to moderate degenerative disc change in the lumbar spine. The sacroiliac joints are normally outlined. Impression: Mild to moderate compression fractures of L2 and L4, age indeterminate. Paravertebral mass to the of T12 and L1. Moderate degenerative spondylosis, as above. Reviewed, dictated and finalized at location . NCT [employer] Impression: Mild to moderate compression fractures of L2 and L4, age indeterminate. Paravertebral mass to the of T12 and L1. Moderate degenerative spondylosis, as above.
== END 2023-01-28 11:10 | disposition home or self-care (01) ==
LOC: ANHASCIMG 11:11
PROVIDERS: PCP Family Medicine; Visit Provider Family Medicine
DX: S22.000A Wedge compression fracture of unspecified thoracic vertebra, initial encounter for closed fracture (principal); Z78.0 Asymptomatic menopausal state; M54.9 Dorsalgia, unspecified; M47.816 Spondylosis without myelopathy or radiculopathy, lumbar region
CPT/HCPCS: 72072; 72110

== ENCOUNTER 2023-02-20 10:40 | Emergency (ER) | payer MEDICARE, SELFPAY ==
--- NOTE | ~2023-02-20 | XR_ITS ---
Left Knee Technique: AP, lateral, and sunrise views were obtained. Clinical History: Pain and swelling Findings: No fracture or dislocation is seen. Osseous alignment is anatomic. Joint spaces are preserv ed without degenerative or erosive change. Chondrocalcinosis of menisci noted. No joint effusion is s een. Impression: Chondrocalcinosis of the menisci. Reviewed, dictated and finalized at location M. E STEWARD/STEWARDESS Impression: Chondrocalcinosis of the menisci.
[2023-02-20 10:49] VITALS: BP 97/83; PULSE 98; RESP 16; TEMP 36.2; O2SAT 97
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
== END 2023-02-20 11:55 | disposition home or self-care (01) ==
PROVIDERS: Emergency Provider Nurse Practitioner Family; PCP Family Medicine
DX: M25.562 Pain in left knee (principal); I10 Essential (primary) hypertension; E78.2 Mixed hyperlipidemia; Z86.73 Personal history of transient ischemic attack (TIA), and cerebral infarction without residual deficits; Z86.19 Personal history of other infectious and parasitic diseases; Z86.61 Personal history of infections of the central nervous system; M47.815 Spondylosis without myelopathy or radiculopathy, thoracolumbar region; F32.A Depression, unspecified; Z79.82 Long term (current) use of aspirin
CPT/HCPCS: 73562; 99213; G0463

== ENCOUNTER 2023-03-04 14:02 | Emergency (ER) | payer MEDICARE, SELFPAY ==
[2023-03-04 14:14] VITALS: BP 115/90; PULSE 110; RESP 20; TEMP 36.4; O2SAT 95
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
== END 2023-03-04 14:56 | disposition home or self-care (01) ==
PROVIDERS: Emergency Provider Nurse Practitioner; PCP Family Medicine
DX: M25.562 Pain in left knee (principal); I10 Essential (primary) hypertension; E78.5 Hyperlipidemia, unspecified
CPT/HCPCS: 99212; G0463

== ENCOUNTER 2023-03-06 14:11 | Emergency (ER) | payer MEDICARE, SELFPAY ==
--- NOTE | ~2023-03-06 | XR_ITS ---
EXAMINATION: [id number] INDICATION: Chest pain TECHNIQUE: A frontal view of the chest and 3 views of the right ribs were obtained. COMPARISON: None. FINDINGS: There is atelectasis or scarring of the left lung base. Lungs are free of acute opacities. No pleural effusion or pneumothorax. There is ectasia of the thoracic aorta. Changes of cardiac valve replacement are noted. There is a chronic healed fracture of the proximal left humerus. There appear to be nondisplaced anterolateral fractures of the right eighth and ninth ribs. Vertebroplasty change s noted at T12 and L1. IMPRESSION: 1. Probable nondisplaced anterolateral fractures of the right eighth and ninth ribs. Reviewed, dictated and finalized at location L. ATE DUTY RN
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
[2023-03-06 14:23] VITALS: BP 134/97; PULSE 84; RESP 16; TEMP 36.3; O2SAT 99
== END 2023-03-06 15:27 | disposition home or self-care (01) ==
PROVIDERS: Emergency Provider Registered Nurse; PCP Family Medicine
DX: S22.41XA Multiple fractures of ribs, right side, initial encounter for closed fracture (principal); I10 Essential (primary) hypertension; E78.5 Hyperlipidemia, unspecified; Z86.73 Personal history of transient ischemic attack (TIA), and cerebral infarction without residual deficits; Z79.899 Other long term (current) drug therapy; Z79.82 Long term (current) use of aspirin; X58.XXXA Exposure to other specified factors, initial encounter
CPT/HCPCS: 71101; 99213; G0463

== ENCOUNTER 2023-05-27 13:36 | Outpatient (CLI) | payer MEDICARE, SELFPAY ==
[2023-05-27 18:47] LABS: Basophils Absolute Auto 0.1 K/mm3 (0.0-0.1); Basophils Percent Auto 0.8 % (0.2-1.2); Eosinophils Absolute Auto 0.3 K/mm3 (0-0.3); Eosinophils Percent Auto 3.4 % (0-4.4); Hemoglobin 13.2 g/dL (12.0-15.0); Immature Granulocyte Absolute 0.02 K/mm3 (0.00-0.031); Immature Granulocyte Percent A 0.3 % (0-0.5); Immature Platelet Fraction Pct 11.2 % (0.9-11.2); Lymphocytes Absolute Auto 2.17 K/mm3 (0.9-3.2); Lymphocytes Percent Auto 29.5 % (18.3-44.2); Mean Corpuscular HGB Conc 31.4 g/dl (32-36); Mean Corpuscular Hemoglobin 31.7 pg (26-34); Monocytes Absolute Auto 0.7 K/mm3 (0.1-0.6); Monocytes Percent Auto 9.8 % (2.6-8.5); Neutrophils Absolute Auto 4.1 K/mm3 (1.3-6.7); Neutrophils Percent Auto 56.2 % (45.5-73.1); Platelet Count Result 200 k/mm3 (150-375); Red Blood Count 4.16 M/mm3 (4.2-5.4); Red Cell Distribution Width 13.9 % (11.5-14.5); White Blood Count 7.4 K/mm3 (4.5-10.0)
[2023-05-27 19:13] LABS: Cholesterol 128 mg/dL (0-200); HDL Direct 63 mg/dL; Triglycerides 63 mg/dL (<150)
[2023-05-27 19:24] LABS: LDL Cholesterol Direct 61 mg/dL
[2023-05-27 20:08] LABS: Vitamin D 25 Hydroxy 44.1 ng/mL
[2023-05-27 20:42] LABS: Hemoglobin A1C 5.8 % (<5.7)
== END 2023-05-27 13:37 | disposition home or self-care (01) ==
LOC: ANHGOSHLAB 13:38
PROVIDERS: PCP Family Medicine; Visit Provider Family Medicine
DX: I10 Essential (primary) hypertension (principal); R73.03 Prediabetes; E78.5 Hyperlipidemia, unspecified; E53.8 Deficiency of other specified B group vitamins; E55.9 Vitamin D deficiency, unspecified; M54.50 Low back pain, unspecified; G89.29 Other chronic pain
CPT/HCPCS: 36415; 80061; 82306; 82607; 83036; 84443; 85025; 85055

== ENCOUNTER 2023-11-26 09:31 | Outpatient (CLI) | payer MEDICARE, SELFPAY ==
--- NOTE | ~2023-11-26 | CT_ITS ---
EXAMINATION: CTA chest DATE: 11/26/2023 09:57 INDICATION: Status post aortic dissection repair TECHNIQUE: Computed tomographic angiography (CTA) of the chest was performed without and with 100 mL Omnipaque-350 intravenous contrast. Volume-rendered 3D-reconstructions of the aorta and large arterie s were constructed by the technologist on a separate workstation. Automated exposure control and iter ative reconstruction technique were employed. The dose-length product was 250.18 mGy-cm. COMPARISON: 10/04/2019 FINDINGS: Discoid atelectasis in the right lower lobe with additional mild bibasilar atelectasis. There is also mild compressive atelectasis at the medial left lower lobe along the tortuous aorta. No pneumonia, p ulmonary edema, pleural effusion or pneumothorax. No significant change in a 7 x 5 mm nodule in the s uperior segment of the left lower lobe which can be seen dating back to 01/30/2017 consistent with ol d granulomatous disease. Heart size is normal. Small amount of atherosclerotic coronary artery calcif ication. No pericardial effusion. Aortic valve repair and ascending aortic aneurysm repair. The more distal thoracic aorta is tortuous but normal in caliber with no dissection. No pathologically enlarge d thoracic lymphadenopathy. 5.9 cm cyst in the left hepatic lobe. Splenosis with multiple surrounding surgical clips in the left upper quadrant. 1.6 x 1.2 cm cystic lesion at the tail of the pancreas wh ich measured 1.3 x [address] dated 10/02/2018. Multiple chronic compression fractures in the lower thoracic and upper lumbar spine with change of prior vertebroplasty at T12 and L1. IMPRESSION: 1. Stable appearance of postoperative change of prior aortic valve repair and ascending thoracic aort ic aneurysm repair with no residual aneurysm or dissection. 2. Reviewed, dictated and finalized at location B. IMPRESSION: 1. Stable appearance of postoperative change of prior aortic valve repair and a scending thoracic aortic aneurysm repair with no residual aneurysm or dissectio n. 2.
== END 2023-11-26 09:32 | disposition home or self-care (01) ==
PROVIDERS: PCP Family Medicine; Visit Provider Nurse Practitioner Adult Health
DX: Z98.890 Other specified postprocedural states (principal)
CPT/HCPCS: 71275; Q9967

== ENCOUNTER 2024-01-11 08:18 | Emergency (ER) | payer MEDICARE, SELFPAY ==
--- NOTE | ~2024-01-11 | XR_ITS ---
EXAMINATION: XR ankle RT min 3V DATE: 01/11/2024 09:15 INDICATION: Right ankle pain. TECHNIQUE: 4 views of right ankle were obtained. COMPARISON: None. FINDINGS: Alignment is normal. There is an avulsion fracture of distal tip of fibula with 2 mm distra ction. There is a dystrophic calcification distal to medial malleolus. There is mild midfoot osteoart hritis. There is ankle soft tissue swelling. IMPRESSION: 1. Avulsion fracture of distal tip of fibula. Reviewed, dictated and finalized at location A.
--- NOTE | ~2024-01-11 | XR_ITS ---
EXAMINATION: XR foot RT min 3V DATE: 01/11/2024 09:15 INDICATION: Right foot pain. TECHNIQUE: 4 views of right foot were obtained. COMPARISON: None. FINDINGS: Alignment is normal. There is an avulsion fracture of distal tip of fibula. There is mild o steoarthritis of some of the interphalangeal joints. IMPRESSION: 1. Avulsion fracture of distal tip of fibula. Reviewed, dictated and finalized at location A.
[2024-01-11 08:28] VITALS: BP 165/82; PULSE 53; RESP 18; TEMP 36.3; O2SAT 96
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
== END 2024-01-11 09:42 | disposition home or self-care (01) ==
PROVIDERS: Emergency Provider Nurse Practitioner; PCP Family Medicine
DX: S82.831A Other fracture of upper and lower end of right fibula, initial encounter for closed fracture (principal); V48.4XXA Person boarding or alighting a car injured in noncollision transport accident, initial encounter; I10 Essential (primary) hypertension; R73.03 Prediabetes; M19.90 Unspecified osteoarthritis, unspecified site; E78.2 Mixed hyperlipidemia; Z86.73 Personal history of transient ischemic attack (TIA), and cerebral infarction without residual deficits; M51.35 Other intervertebral disc degeneration, thoracolumbar region; Z95.2 Presence of prosthetic heart valve; Z79.82 Long term (current) use of aspirin
CPT/HCPCS: 73610; 73630; 99214; G0463

== ENCOUNTER 2024-05-17 12:44 | Outpatient (CLI) | payer MEDICARE, SELFPAY | END 2024-05-17 12:45 | disposition home or self-care (01) | LOC: ANHCARD 12:45 | PROVIDERS: PCP Family Medicine; Visit Provider Thoracic Surgery (Cardiothoracic Vascular Surgery) | DX: I35.1 Nonrheumatic aortic (valve) insufficiency (principal) | CPT/HCPCS: 93306 ==